=== PATIENT | male | born 1970 | race Caucasian/White ===

== ENCOUNTER 2023-05-01 13:56 | Emergency (ER) | payer BC ==
[~2023-05-01] VITALS: Ht 180.3 cm; Wt 88.6 kg
[2023-05-01 14:06] VITALS: TEMP 98.2
[2023-05-01 15:12] LABS: BASO # 0.1 K/mm3 (0.0-0.2); BASO % 0.6 % (0.0-2.0); EOS # 0.1 K/mm3 (0.0-0.7); EOS % 1.1 % (0.0-4.0); GRAN # 4.7 K/mm3 (1.4-6.5); GRAN % 57.8 % (42.2-75.2); HEMOGLOBIN 15.2 g/dl (13.5-18.0); LYMPH # 2.7 K/mm3 (1.2-3.4); LYMPH % 33.4 % (20.0-51.0); MEAN CELL VOLUME 85 fl (80.0-100.0); MEAN CORPUSCULAR HEMOGLOBIN 29 pg (27-31); MEAN CORPUSCULAR HGB CONC 34 g/dl (33.0-37.0); MEAN PLATELET VOLUME 10.7 fl (7.4-10.4); MONO # 0.6 K/mm3 (0.1-0.6); MONO % 6.9 % (1.7-9.3); PLATELET COUNT 178 K/mm3 (130-400); RED BLOOD COUNT 5.28 M/mm3 (4.20-5.60); REDCELL DISTRIBUTION WIDTH-CV 13.1 % (11.5-14.5)
[2023-05-01 15:25] LABS: INR 1.1 (0.8-3.0); PROTHROMBIN TIME 11.5 SECONDS (9.7-12.8)
[2023-05-01 15:28] LABS: PARTIAL THROMBOPLASTIN TIME 26.3 SECONDS (26.0-37.0)
[2023-05-01 15:33] LABS: ALANINE AMINOTRANSFERASE 32 U/L (0-55); ALBUMIN 4.6 gm/dL (3.5-5.0); ALKALINE PHOSPHATASE 55 U/L (40-150); ANION GAP 12 mmol/L (7-16); AST,SGOT 21 U/L (5-34); BILIRUBIN,TOTAL 0.5 mg/dL (0.2-1.2); BLOOD UREA NITROGEN 21 mg/dL (8-26); CALCIUM 9.5 mg/dL (8.4-10.2); CARBON DIOXIDE 23 mmol/L (22-29); CHLORIDE 105 mmol/L (98-107); CREATININE, serum 1.27 mg/dL (0.72-1.25); GLUCOSE 101 mg/dL (70-99); MAGNESIUM 2.2 mg/dL (1.6-2.6); POTASSIUM 4.2 mmol/L (3.5-4.5); SODIUM 140 mmol/L (136-145); TOTAL PROTEIN 7.4 gm/dL (6.2-8.1)
[2023-05-01 15:42] LABS: TROPONIN-I < 0.010 ng/mL (0.00-0.033)
[2023-05-01] MEDS ORDERED: TOPROL XL 25MG25 MG PO (16:10)
[2023-05-01 16:34] VITALS: BP 144/92; PULSE 79
== END 2023-05-01 16:36 | disposition home or self-care (01) ==
LOC: COL.ER 13:56
PROVIDERS: Family Medicine
DX: I10 Essential (primary) hypertension (principal); I45.10 Unspecified right bundle-branch block